=== PATIENT | male | born 1995 | race Hispanic/Latino ===

== ENCOUNTER 2017-07-24 15:09 | Outpatient (CLI) | payer BC ==
--- NOTE | 2017-07-25 07:36 | XRay Report ---
LEFT ANKLE RADIOGRAPHS INDICATION: Left ankle pain. COMPARISON: None similar at this institution. FINDINGS: AP, lateral and oblique left ankle radiographs demonstrate intact mortise, malleoli and talar dome contour. Mild soft tissue swelling may be present laterally and some possibly anteriorly. CONCLUSION: Left ankle soft tissue swelling/injury possible without acute bony abnormality, as described. Please correlate. Thank you for the opportunity to participate in this patient's care.
== END 2017-07-24 15:10 | disposition home or self-care (01) ==
LOC: SPVIMAG 15:09
PROVIDERS: ATTEND Orthopaedic Surgery
DX: M25.572 Pain in left ankle and joints of left foot (principal)